=== PATIENT | female | born 1935 | race Caucasian/White ===

== ENCOUNTER 2016-07-13 13:14 | Emergency (ER) | payer MEDICARE, BC ==
[2016-07-13] MEDS ORDERED: HYDROmorphone 1 MG/ML Syringe IM ONE (13:57)
--- NOTE | 2016-07-13 15:43 | EDM.PDOC ---
ED HPI Trauma - General Chief Complaint: Lower Extremity Injury/Pain Stated Complaint: RT LEG PAIN Time Seen by Provider: 07/13/16 13:24 Source: Reports: Patient, Family (), RN notes reviewed, Other (Outside records from [facility] and the patient's PCP.) History Limitations: Reports: No limitations - History of Present Illness INITIAL COMMENTS - FREE TEXT/NARRATIVE: The patient presents with right lower quadrant abdominal pain radiating down the anterior aspect of her right thigh to the knee. Medical records obtained from [facility] indicate that the patient was seen by her PCP, Carol Lazcano, on 07/02/2016, at which time x-rays were taken of the right hip which found no abnormalities. She was placed on a tapering dose of prednisone as well as tramadol. She then presented to [facility] ED on 07/06/2016 with a complaint of right lower quadrant abdominal pain. She denied radiation at that time. Workup in the ED included blood work, a urinalysis, and a CT scan of the abdomen and pelvis. Her workup is grossly unremarkable, revealing only constipation. For reasons unclear, she was started on cefoxitin and admitted for further evaluation and treatment. Once admitted, she denied abdominal pain , and complained only of right lower extremity pain. She underwent a Doppler ultrasound of her right lower extremity, which found no DVT. She was consulted by physical therapy and an orthopedic surgeon. Her constipation was treated. She was discharged home 07/08/2016 after her symptoms significantly improved. She was able to cannulate with a walker. Her prednisone was discontinued, but Keflex was prescribed. She then followup with her PCP on 07/09/2016, again complaining of severe right groin pain down the inside of her right thigh. She had not yet started the Keflex. She was presumptively diagnosed with right lumbar radiculopathy. The patient followed up with her PCP a second time yesterday, 07/12/2016. She was again complaining of hip and groin pain, along with constipation since being on pain medications. The patient states that somewhere along this course of events, she has been prescribed morphine ER 15 mg BID, which she is taking, and tramadol, one tablet up to every 6 hours as needed for breakthrough pain, which she has only taken occasionally. A MRI of the lumbar spine has been scheduled for this coming 07/17/2016. 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 She underwent a lumbar fusion in 1979 and again in 1984. Allergies/ADRs: Allergies codeine Allergy (Verified 07/13/16 13:25) Rash Sulfa (Sulfonamide Antibiotics) Allergy (Verified 07/13/16 13:25) Rash Home Medications: Ambulatory Orders Aspirin [Ecotrin] 325 mg PO DAILY 03/19/15 [Confirmed 06/10/16] Bilberry 1,000 mg PO DAILY 03/19/15 [Confirmed 06/10/16] Carvedilol [Coreg] 6.25 mg PO BID 03/19/15 [Confirmed 06/10/16] Cranberry Extract [Cranberry] 300 mg PO DAILY 03/19/15 [Confirmed 06/10/16] Digoxin 0.125 mg PO DAILY 03/19/15 [Confirmed 06/10/16] Furosemide [Lasix] 20 mg PO DAILY 03/19/15 [Confirmed 06/10/16] Pregabalin [Lyrica] 100 mg PO BID 03/19/15 [Confirmed 06/10/16] Pregabalin [Lyrica] 200 mg PO BEDTIME 03/19/15 [Confirmed 06/10/16] Spironolactone [Aldactone] 25 mg PO DAILY 03/19/15 [Confirmed 06/10/16] Tamsulosin [Flomax] 0.4 mg PO DAILY 03/19/15 [Confirmed 06/10/16] traMADol [Ultram] 50 mg PO Q6H PRN 03/19/15 [Confirmed 06/10/16] Cholecalciferol (Vitamin D3) [Vitamin D3] 5,000 unit PO DAILY 06/10/16 [ Confirmed 06/10/16] Ciprofloxacin [Ciprofloxacin HCl] 500 mg PO BID #14 tablet 06/10/16 Clopidogrel [Plavix] 75 mg PO DAILY 06/10/16 [Confirmed 06/10/16] DULoxetine [Cymbalta] 60 mg PO DAILY 06/10/16 [Confirmed 06/10/16] Insulin Lispro [HumaLOG] 3 unit INJECT ASDIRECTED 06/10/16 [Confirmed 06/10/16] Oxybutynin [Oxybutynin ER] 5 mg PO DAILY 06/10/16 [Confirmed 06/10/16] Simvastatin [Zocor] 20 mg PO BEDTIME 06/10/16 [Confirmed 06/10/16] Tresiba 160 units INJECT DAILY 06/10/16 Past Medical History Cardiovascular History: Reports: Afib (paroxysmal), High cholesterol, Hypertension Respiratory History: Reports: Sleep apnea (CPAP 9 + O2 2L at night) Gastrointestinal History: Reports: GI bleed, Hemorrhoids Genitourinary History: Reports: Neurogenic bladder Musculoskeletal History: Reports: Back pain, chronic (Right lumbar radiculopathy ), Osteoarthritis Neurological History: Reports: Neuropathy, peripheral, Other (see below) ( Cognitive deficits) Psychiatric History: Reports: Depression Endocrine/Metabolic History: Reports: Diabetes, type II, Multinodular thyroid, Obesity/BMI 30+ - Past Surgical History HEENT Surgical History: Reports: Tonsillectomy GI Surgical History: Reports: Cholecystectomy, Hernia repair/other Female Surgical History: Reports: section (x 1), Other (see below) ( Bladder surgery x 3) Musculoskeletal Surgical History: Reports: Hip replacement (right), Other (see below) (Bilateral hammertoe surgeries) Social & Family History - Tobacco Use Smoking Status *Q: Never Smoker Month Tobacco Last Used: 60 years ago Second Hand Smoke Exposure: No - Caffeine Use Caffeine Use: Reports: Coffee - Alcohol Use Alcohol Use History: No - Recreational Drug Use Recreational Drug Use: No - Living Situation & Occupation Living situation: Reports: , with spouse Occupation: retired Review of Systems - Review of Systems Review Of Systems: See Below Constitutional: Reports: no symptoms Eyes: Reports: no symptoms Ears: Reports: no symptoms Nose: Reports: no symptoms Mouth/Throat: Reports: no symptoms Respiratory: Reports: No Symptoms Cardiovascular: Reports: no symptoms GI/Abdominal: Reports: Abdominal pain (as per the HPI), Constipation (as per the HPI) Genitourinary: Reports: no symptoms Musculoskeletal: Reports: back pain (as per the HPI), leg pain (as per the HPI) Skin: Reports: no symptoms Neurological: Reports: No Symptoms Psychiatric: Reports: no symptoms Trauma Exam - Physical Exam Exam: See Below Exam Limited By: No limitations General Appearance: Reports: WD/WN, no apparent distress, other (Somnolent. Nods off frequently.) Head: Reports: atraumatic, normocephalic Eyes: bilateral eye: EOMI, normal inspection, PERRL Ears: Reports: normal external exam, hearing grossly normal Nose: Reports: normal inspection, no blood Throat/Mouth: Reports: Normal inspection, Normal lips, Normal voice, No airway compromise Neck: Reports: normal inspection Respiratory Exam: Reports: no respiratory distress, lungs clear, normal breath sounds, no accessory muscle use Cardiovascular: Reports: normal peripheral pulses, regular rate, rhythm, no edema, no gallop, no JVD, no murmur, no rub GI/Abdominal: Reports: normal bowel sounds, soft, no organomegaly, no distention , no abnormal bruit, no mass, tenderness (Right lower quadrant only. Nontender elsewhere.), other (Obese) Back: Reports: full range of motion, normal inspection Extremities: Reports: no evidence of injury, normal range of motion, non-tender , no pedal edema Neurologic: Reports: no motor/sensory deficits, oriented x 3 Skin: Reports: Normal color, Warm/dry Course - Vital Signs Last Recorded V/S: Last Vital Signs Temp 36.9 C 07/13/16 13:25 Pulse 66 07/13/16 16:20 Resp 18 07/13/16 16:20 BP 151/70 H 07/13/16 16:20 Pulse Ox 96 07/13/16 16:20 - Orders/Labs/Meds Meds: Medications Discontinued Medications Generic Name Dose Route Start Last Admin Trade Name Blayneq PRN Reason Stop Dose Admin Hydromorphone HCl 1 mg 07/13/16 13:57 07/13/16 14:11 Dilaudid IM 07/13/16 13:58 1 mg ONETIME ONE Administration - Re-Assessments/Exams Free Text/Narrative Re-Assessment/Exam: 07/13/16 15:33 The patient was given Dilaudid 1 mg IM here in the ED, and is reporting improvement in her pain. She is also somnolent, having difficulty remaining awake to discuss her plans. Medical records from [facility] and the patient's PCP indicate that the patient's right lower quadrant abdominal pain and right lower extremity pain is likely due to lumbar radiculopathy. This seems reasonable to me. The patient is currently scheduled for a MRI of her lumbar spine this coming 07/17/26. She is currently taking morphine ER 15 mg twice a day, however, is not taking her previously prescribed tramadol for breakthrough pain, as prescribed. I am recommending that she do so. With respect to her constipation, it is almost certainly due to the morphine that she is taking. She is currently taking MiraLax and magnesium citrate, which I agree with. I am suggesting to her that she also try [id number] enemas, in particular, mineral oil enemas, which she can make from saline enemas , if she cannot find mineral oil enemas in the store. The patient expressed understanding. Departure - Departure Time of Disposition: 15:35 Disposition: Home, Self-Care 01 Condition: fair Clinical Impression: Lumbar radiculopathy, right, Constipation due to opioid therapy Instructions: Constipation, Adult Referrals: Carol Lazcano PA-C [Primary Care Provider] - Forms: ED Department Discharge Additional Instructions: You were seen in the emergency room today for continued right lower abdomen and right thigh pain. You also have constipation. After reviewing your medical records from [facility] and your PCPs office, it appears that they feel your pain is due to nerve irritation coming from your back, a condition known as lumbar radiculopathy. You are scheduled for a MRI of your lower back this coming Friday, 2016. We recommend that you keep that appointment. We recommend that you continue to take your morphine ER, one tablet every 12 hours, as prescribed. We recommend that you take your previously prescribed tramadol, one tablet up to every 6 hours, as needed for breakthrough pain. We recommend that you continue to take MiraLax and magnesium citrate, as you have been. Consider using a mineral oil enema. If you cannot find mineral oil enemas at the store, you can make mineral oil enemas by purchasing saline enemas as well as mineral oil in a bottle. Pour out the saline and replace it with mineral oil , then use the enema as directed on the label. If any other problems, please do not hesitate to return to the ER.
[2016-07-13 16:29] VITALS: BP 151/70
== END 2016-07-13 16:20 | disposition home or self-care (01) ==
LOC: JD.ED 13:14
DX: M54.16 Radiculopathy, lumbar region (principal); K59.03 Drug induced constipation; T40.2X5A Adverse effect of other opioids, initial encounter; I10 Essential (primary) hypertension; E78.00 Pure hypercholesterolemia, unspecified; G47.30 Sleep apnea, unspecified; F32.9 Major depressive disorder, single episode, unspecified; E11.42 Type 2 diabetes mellitus with diabetic polyneuropathy; E66.9 Obesity, unspecified; Z68.30 Body mass index [BMI] 30.0-30.9, adult; Z98.890 Other specified postprocedural states; Z90.49 Acquired absence of other specified parts of digestive tract; Z96.641 Presence of right artificial hip joint; Z79.82 Long term (current) use of aspirin; Z79.02 Long term (current) use of antithrombotics/antiplatelets; Z79.4 Long term (current) use of insulin; Z79.899 Other long term (current) drug therapy; Z88.2 Allergy status to sulfonamides; Z88.5 Allergy status to narcotic agent
CPT/HCPCS: 96372; 99283; J1170; 99284